=== PATIENT | female | born 1970 ===

== ENCOUNTER 2020-11-19 08:53 | Day surgery (SDC) | payer OTHER ==
[~2020-11-19 08:53] MED LIST: CALCIUM PO; FISH OIL 1,0001 EAC1 PO
== END 2020-11-20 00:15 | disposition home or self-care (01) ==
LOC: CIR.AMB 08:53
PROVIDERS: ATTEND Specialist
DX: N84.0 Polyp of corpus uteri (principal); N84.1 Polyp of cervix uteri; Z20.822 Contact with and (suspected) exposure to COVID-19